=== PATIENT | male | born 1995 | race Caucasian/White ===

== ENCOUNTER 2021-08-05 11:25 | Emergency (ER) | payer OTHER ==
[~2021-08-05] VITALS: Ht 190.5 cm; Wt 100.0 kg
[2021-08-05] MEDS ORDERED: IBUPROFEN 600MG TABLET PO STA (12:17)
[2021-08-05] MEDS ORDERED: IBUP-2029 MT (14:00)
[2021-08-05 14:42] VITALS: BP 148/85
== END 2021-08-05 14:45 | disposition home or self-care (01) ==
LOC: ER 11:25
DX: B34.9 Viral infection, unspecified (principal); J45.909 Unspecified asthma, uncomplicated; Z87.81 Personal history of (healed) traumatic fracture; Z90.49 Acquired absence of other specified parts of digestive tract
CPT/HCPCS: 71045; 93005; 99283